=== PATIENT | male | born 2000 | race Caucasian/White ===

== ENCOUNTER 2020-02-11 00:15 | Emergency (ER) | payer OTHER, BC ==
--- NOTE | 2020-02-11 00:46 | EDM.PDOC ---
ED HPI GENERAL MEDICAL PROBLEM - General Chief Complaint: Behavioral/Psych Stated Complaint: Depression, Denies suicidal ideas Time Seen by Provider: 02/11/20 00:32 Source of Information: Reports: Patient, Police - History of Present Illness INITIAL COMMENTS - FREE TEXT/NARRATIVE: Jackson is a 19 y/o male who was brought to the ER by police after his girlfriend called the police that he had had made a threat that she would never see him again. The patient and his girlfriend were fighting tonight and are having custody issues over a child and in the process of breaking up. Patient did not admit to any positive suicide questions here in the ER> He does report being on the Lexapro in the past, but he stopped taking it after a couple since he got nauseated from it. He is just very upset and anxious. He has recently moved here from [place], [place] and has not yet found a PCP. Review of Systems - Review of Systems Review Of Systems: See Below Constitutional: Reports: No Symptoms Eyes: Reports: No Symptoms Ears: Reports: No Symptoms Nose: Reports: No Symptoms Mouth/Throat: Reports: No Symptoms Respiratory: Reports: No Symptoms Cardiovascular: Reports: No Symptoms GI/Abdominal: Reports: No Symptoms Genitourinary: Reports: No Symptoms Musculoskeletal: Reports: No Symptoms Skin: Reports: No Symptoms Neurological: Reports: No Symptoms Psychiatric: Reports: Depression, Anxiety ED EXAM, GENERAL - Physical Exam Exam: See Below General Appearance: Alert, WD/WN, No Apparent Distress (young adult male) Nose: Normal Inspection Head: Atraumatic, Normocephalic Respiratory/Chest: No Respiratory Distress GI/Abdominal: Soft (Male) Exam: Deferred Rectal (Males) Exam: Deferred Extremities: Normal Inspection, Normal Capillary Refill Neurological: Alert, Oriented, CN II-XII Intact Psychiatric: Depressed Mood Skin Exam: Warm, Dry, Intact, Normal Color Lymphatic: No Adenopathy Course - Vital Signs Text/Narrative:: 0032 The patient was seen by the [employer]. No labs done. Patient was not suicidal and scored low on the [place] Suicide tool. [facility] teleconsult done. 0150 [facility] clinician gives [employer] review. Recommends outpatient counseling and follow up with PCP for meds. Patient denied need for anythign to help him rest tonight. Patient given discharge instructions and left the ER in stable condition after instructions were given. Last Recorded V/S: Last Vital Signs Temp 36.0 C L 02/11/20 00:15 Pulse 113 H 02/11/20 00:15 Resp 16 02/11/20 00:15 BP 156/102 H 02/11/20 00:15 Pulse Ox 96 02/11/20 00:15 Departure - Departure Time of Disposition: 01:56 Disposition: Home, Self-Care 01 Condition: Good Clinical Impression: Depressive disorder - Discharge Information Instructions: Stress, Adult, Major Depressive Disorder, Adult Forms: ED Department Discharge Sepsis Event Note (ED) - Focused Exam Vital Signs: Vital Signs Temp Pulse Resp BP Pulse Ox 02/11/20 00:15 36.0 C L 113 H 16 156/102 H 96 - Assessment/Plan Assessment:: 1)Situational Stress 2)Depression/Anxiety Plan: -Call one of the local clinics to set up an appt to get back on medications [facility] -Call a local clinic for a counseling session [facility] -Return to the ER as needed
== END 2020-02-11 02:05 | disposition home or self-care (01) ==
LOC: VM.ED 00:15
DX: F32.9 Major depressive disorder, single episode, unspecified (principal); F43.9 Reaction to severe stress, unspecified
CPT/HCPCS: 99283; 99284